=== PATIENT | female | born 1995 | race African-American/Black ===

== ENCOUNTER 2018-04-20 00:51 | Emergency (ER) | payer OTHER ==
[~2018-04-20] VITALS: Ht 147.3 cm; Wt 62.2 kg
[2018-04-20 02:37] VITALS: BP 118/81
== END 2018-04-20 04:21 | disposition home or self-care (01) ==
LOC: ER 00:51
DX: B34.9 Viral infection, unspecified (principal)
CPT/HCPCS: 71045; 81025; 99283